=== PATIENT | male | born 1960 | race Two or more races ===

== ENCOUNTER 2019-01-11 18:09 | Emergency (ER) | payer OTHER ==
[~2019-01-11] VITALS: Ht 177.8 cm; Wt 140.0 kg
[2019-01-11] MEDS ORDERED: SPIR25TA6 PO (18:15)
[2019-01-11] MEDS ORDERED: WARF1TAB85 PO (18:15)
[2019-01-11] MEDS ORDERED: LISI2.5T47 PO (18:15)
[2019-01-11] MEDS ORDERED: IPRATROPIUM BROMIDE (0.02%) 0.5MG/2.5ML NEB HHN STA (19:47)
[2019-01-11] MEDS ORDERED: ALBUTEROL (0.083%) 2.5MG/3ML NEB HHN STA (19:47)
[2019-01-11 19:48] LABS: BASOPHILS % 1.1 % (0.0-2.0); EOSINOPHILS % 1.4 % (0.0-5.0); HEMATOCRIT. 33.6 % (42.0-52.0); HEMOGLOBIN. 11.1 g/dL (14.0-18.0); LYMPHOCYTES % 11.2 % (20.0-50.0); MEAN CORPUSCULAR HEMOGLOBIN 30.3 pg (28.0-32.0); MEAN CORPUSCULAR VOLUME 91.8 fL (80.0-94.0); MEAN PLATELET VOLUME 7.4 fl (7.4-10.4); MONOCYTES % 10.1 % (2.0-8.0); NEUTROPHILS % 76.2 % (40.0-76.0); PLATELET 421 x1000/uL (130-400); RED BLOOD CELL COUNT 3.67 mill/uL (4.7-6.1); RED CELL DISTRIBUTION WIDTH 14.3 % (11.6-14.6)
[2019-01-11 19:54] LABS: CHLORIDE 107 mEq/L (98-107)
[2019-01-11] MEDS ORDERED: IOHEXOL-350 100 ML BOTTLE ONE (21:56)
[2019-01-11 23:47] VITALS: BP 118/67
== END 2019-01-12 00:30 | disposition home or self-care (01) ==
LOC: ER 18:09
DX: R06.02 Shortness of breath (principal); I10 Essential (primary) hypertension; I48.91 Unspecified atrial fibrillation; J44.9 Chronic obstructive pulmonary disease, unspecified; J98.11 Atelectasis; Z79.01 Long term (current) use of anticoagulants; Z98.84 Bariatric surgery status
CPT/HCPCS: 36415; 71045; 71275; 80053; 83735; 83880; 84484; 85025; 85379; 93005; 94640; 99284; J7611; Q9967